=== PATIENT | male | born 1980 | race Caucasian/White ===

== ENCOUNTER 2021-06-04 22:07 | Emergency (ER) | payer OTHER, SELFPAY ==
[2021-06-04 22:15] VITALS: BP 158/105; PULSE 84; RESP 17; TEMP 36.5; O2SAT 100; BMI 27.8
--- NOTE | 2021-06-04 23:31 | ED.EXTPRO ---
HPI - Extremity Problem General Chief complaint: Extremity Problem,Nontraumatic Stated complaint: LEFT FOOT BIG TOE FLUID PAIN Time Seen by Provider: 06/04/21 23:13 Source: patient Mode of arrival: Ambulatory Limitations: no limitations History of Present Illness HPI Narrative: Patient is a 40-year-old male here for evaluation of redness and swelling around his left great toe. He states that it has been there for the past couple days. He has had gout in the past but is been in his right foot. He states the symptoms in his left foot are somewhat similar to his gout but not exactly. He has never had in this foot in the past. He denies any trauma. He has been trying to treat the symptoms at home with natural remedies but does not have any improvement of the symptoms. He denies any fevers. Related Data Previous Rx's Medication Instructions Recorded cephalexin 500 mg capsule 500 mg PO QID 7 Days #28 cap 06/05/21 Allergies Allergy/AdvReac Type Severity Reaction Status Date / Time No Known Drug Allergies Allergy Verified 06/04/21 22:17 Review of Systems Constitutional Constitutional: Denies fever(s) Musculoskeletal Musculoskeletal: Reports system reviewed and no additional complaints, except as documented and Reports as per HPI Integumentary/Breasts Skin/Breast: Reports system reviewed and no additional complaints, except as documented and Reports as per HPI Neurologic Neurologic: Reports system reviewed and no additional complaints, except as documented and Reports as per HPI Hematologic/Lymphatic On Anticoagulants: No Patient History Medical History Gout Social History Smoking Status: Never smoker Smoking Status: Never smoker alcohol intake frequency: a few times a week Substance Use Type: does not use Exam Initial Vital Signs Initial Vital Signs: Vital Signs Temperature 97.7 F 06/04/21 22:15 Pulse Rate 84 06/04/21 22:15 Respiratory Rate 17 06/04/21 22:15 Blood Pressure 158/105 H 06/04/21 22:15 Pulse Oximetry 100 06/04/21 22:15 HENMT Head: normal to inspection and normocephalic Cardio Pulses: dorsalis pedis present on the left Skin Other: Patient does have redness surrounding the area between the MTP joint and the proximal portion of his nail of the left great toe. Is the dorsum of this area. There is some redness that surrounds the base of the 2nd toe. There is swelling around this area that extends to the lateral aspect of his foot. He does not have any tenderness with movement of his left ankle. His left calf is unremarkable. His left knee is unremarkable. Neuro Sensory Exam: no sensory deficits noted Course Orders Ordered: ED Orders 06/04/21 23:51 Basic Metabolic Panel Stat C-Reactive Protein Quant Stat Complete Blood Count AUTO DIFF Stat Erythrocyte Sedimentation Rate Stat Uric Acid Stat Discontinued Medications Cephalexin HCl (Cephalexin 250 Mg Capsule) 500 mg PO NOW ONE Stop: 06/05/21 00:19 Last Admin: 06/05/21 00:30 Dose: 500 mg Documented by: MATY Vital Signs Vital signs: Vital Signs - 8 hr 06/05/21 00:35 Pulse Rate 84 Respiratory Rate 14 Blood Pressure 136/93 H Pulse Oximetry 99 MDM - Extremity (Nontraumatic) Lab Data Result diagrams: 06/04/21 23:51 06/04/21 23:51 Labs: Lab Results 06/04/21 06/04/21 Range/Units 23:51 23:51 WBC 8.1 (4.5-11.0) X10^3/uL RBC 4.19 L (4.5-5.9) X10^6/uL Hgb 13.7 (13.5-17.5) g/dL Hct 39.8 L (41-53) % MCV 95.0 (80-100) fL MCH 32.8 (26-34) PG MCHC 34.5 (30-36) % RDW 13.1 (11.6-14.8) % Plt Count 177 (150-400) X10^3/uL Neut % (Auto) 63.1 (50-75) % Lymph % (Auto) 24.3 L (25-40) % Marshall % (Auto) 10.3 (3-14) % Eos % (Auto) 1.6 L (2-4) % Baso % (Auto) 0.7 (0-2) % Neut # (Auto) 5100 (0804-6861) /uL Lymph # (Auto) 2000 (4309-9825) /uL Marshall # (Auto) 800 (0-900) /uL Eos # (Auto) 100 (0-450) /uL Baso # (Auto) 100 (0-100) /uL ESR 18 H (0-15) MM/HR Sodium 140 (137-145) mmol/L Potassium 4.2 (3.4-5.1) mmol/L Chloride 103 (98-107) mmol/L Carbon Dioxide 32 (22-32) mmol/L BUN 14 (9-20) mg/dL Creatinine 1.01 (0.66-1.25) mg/dL Estimated GFR > 60.0 (>60) mL/min BUN/Creatinine Ratio 13.9 (6-22) Glucose 96 (70-100) mg/dL Uric Acid 6.3 (3.5-8.5) mg/dL Calcium 9.5 (8.4-10.2) mg/dL C-Reactive Protein 4.5 H (<1.0) mg/dL MDM Narrative Medical decision making narrative: Patient's physical exam today could potentially be gout however he does have a normal uric acid. I have low suspicion for fracture. We will hold on any x-rays. I have a higher suspicion that this may be a cellulitis based on his exam today. Plan will be is to start him on oral antibiotics. He was given a dose here in the ER will send home with prescription for the remainder. No indication for admission to the hospital for IV antibiotics today. He is neurovascularly intact. He was given strict return precautions and follow-up instructions. He expressed understanding and agreement. Discharge Plan Departure Patient Disposition: Home Clinical Impression: Cellulitis Instructions: DI for Cellulitis -- Adult Activity Restrictions/Additional Instructions: The feel given your presentation today and also your labs that the inflammation around your left big toe is a infection and less likely gout. I feel that we should start you on antibiotics. A prescription was sent to [facility]. Please start taking it as directed. Contact your primary doctor for a follow-up. Return to the emergency department for any new or worsening symptoms Prescriptions: New cephalexin 500 mg capsule 500 mg PO QID 7 Days Qty: 28 RF: 0
[2021-06-04 23:56] LABS: Add Manual Diff / Slide Review NO; Basophils Absolute Auto 100 /uL (0-100); Basophils Percent Auto 0.7 % (0-2); Eosinophils Absolute Auto 100 /uL (0-450); Eosinophils Percent Auto 1.6 % (2-4); Hematocrit 39.8 % (41-53); Hemoglobin 13.7 g/dL (13.5-17.5); Lymphocytes Absolute Auto 2000 /uL (1100-4500); Lymphocytes Percent Auto 24.3 % (25-40); Mean Corpuscular HGB Conc 34.5 % (30-36); Mean Corpuscular Hemoglobin 32.8 PG (26-34); Monocytes Absolute Auto 800 /uL (0-900); Monocytes Percent Auto 10.3 % (3-14); Neutrophils Absolute Auto 5100 /uL (1500-7000); Neutrophils Percent Auto 63.1 % (50-75); Platelet Count 177 X10^3/uL (150-400); Red Blood Cell Count 4.19 X10^6/uL (4.5-5.9); Red Cell Distribution Width 13.1 % (11.6-14.8); White Blood Cell Count 8.1 X10^3/uL (4.5-11.0)
[2021-06-05 00:09] LABS: BUN Creatinine Ratio 13.9 (6-22); Blood Urea Nitrogen 14 mg/dL (9-20); C-Reactive Protein Quant 4.5 mg/dL (<1.0); Calcium 9.5 mg/dL (8.4-10.2); Carbon Dioxide 32 mmol/L (22-32); Chloride 103 mmol/L (98-107); Estimated Glomerular Filt Rate > 60.0 mL/min (>60); Glucose 96 mg/dL (70-100); HEMOLYSIS < 15 (0-50); Potassium 4.2 mmol/L (3.4-5.1); Sodium 140 mmol/L (137-145); Uric Acid 6.3 mg/dL (3.5-8.5)
[2021-06-05 00:18] LABS: Erythrocyte Sedimentation Rate 18 MM/HR (0-15)
[2021-06-05] MEDS: cephALEXin 250 MG CAPSULE 500 MG PO (00:30)
[2021-06-05 00:35] VITALS: BP 136/93; PULSE 84; RESP 14; O2SAT 99
== END 2021-06-05 00:36 | disposition home or self-care (01) ==
PROVIDERS: Emergency Provider Emergency Medicine
DX: L03.032 Cellulitis of left toe (principal)
CPT/HCPCS: 36415; 80048; 84550; 85025; 85651; 86140; 99283

== ENCOUNTER → 2024-01-16 10:24 | Outpatient (CLI) | payer OTHER, SELFPAY ==
--- NOTE | 2024-01-16 10:26 | DI.RAD.S_ITS ---
PROCEDURE: XR FOOT LT MIN 3V INDICATIONS: pain/swelling redness x 4 days TECHNIQUE: 3 views of the foot were acquired. COMPARISON: None. FINDINGS: Bones: No fractures or dislocations. Chronic appearing fracture deformity at the 1st interphalangeal joint. No suspicious bony lesions. Soft tissues: No tibiotalar joint effusion. Achilles tendon appears normal. IMPRESSION: No acute osseous abnormalities. Chronic appearing fracture deformity at the 1st interphalangeal joint. Dictated by: Maikel Baker M.D. on 01/16/2024 at 14:25 Approved by: Maikel Baker M.D. on 01/16/2024 at 14:27
[2024-01-16 11:53] LABS: Erythrocyte Sedimentation Rate 24 MM/HR (0-15)
[2024-01-16 15:03] LABS: Add Manual Diff / Slide Review NO; Basophils Absolute Auto 100 /uL (0-100); Basophils Percent Auto 0.7 % (0-2); Eosinophils Absolute Auto 200 /uL (0-450); Eosinophils Percent Auto 1.8 % (2-4); Hematocrit 41.4 % (41-53); Hemoglobin 14.4 g/dL (13.5-17.5); Lymphocytes Absolute Auto 1900 /uL (1100-4500); Lymphocytes Percent Auto 20.9 % (25-40); Mean Corpuscular HGB Conc 34.8 % (30-36); Mean Corpuscular Hemoglobin 33.6 PG (26-34); Mean Corpuscular Volume 96.4 fL (80-100); Monocytes Absolute Auto 700 /uL (0-900); Monocytes Percent Auto 7.4 % (3-14); Neutrophils Absolute Auto 6100 /uL (1500-7000); Neutrophils Percent Auto 69.2 % (50-75); Platelet Count 277 X10^3/uL (150-400); Red Blood Cell Count 4.29 X10^6/uL (4.5-5.9); Red Cell Distribution Width 13.3 % (11.6-14.8); White Blood Cell Count 8.9 X10^3/uL (4.5-11.0)
[2024-01-16 15:31] LABS: Alanine Aminotransferase 41 IU/L (<50); Albumin 4.5 g/dL (3.5-5.0); Albumin Globulin Ratio 1.5 (1.0-2.8); Alkaline Phosphatase 77 U/L (38-126); Aspartate Aminotransferase 35 IU/L (17-59); BUN Creatinine Ratio 13.8 (6-22); Bilirubin Total 0.7 mg/dL (0.2-1.3); Blood Urea Nitrogen 12 mg/dL (9-20); Calcium 9.5 mg/dL (8.4-10.2); Carbon Dioxide 27 mmol/L (22-32); Chloride 106 mmol/L (98-107); Cholesterol 223 mg/dL (140-199); Estimated Glomerular Filt Rate > 60 mL/min (>60); Glucose 85 mg/dL (70-100); HDL Cholesterol 55 mg/dL (40-60); HEMOLYSIS < 15 (0-50); LDL Cholesterol Calculated 146 mg/dL (<100); Potassium 4.9 mmol/L (3.4-5.1); Sodium 140 mmol/L (137-145); Total Protein 7.5 g/dL (6.3-8.2); Triglycerides 110 mg/dL (35-150); Uric Acid 7.2 mg/dL (3.5-8.5)
== END ==
PROVIDERS: PCP Family Medicine; Referring Provider Physician Assistant; Visit Provider Physician Assistant
DX: M79.672 Pain in left foot (principal); M10.9 Gout, unspecified; R03.0 Elevated blood-pressure reading, without diagnosis of hypertension
CPT/HCPCS: 36415; 73630; 80053; 80061; 84550; 85025; 85651

== ENCOUNTER → 2024-11-02 12:12 | Outpatient (CLI) | payer OTHER, SELFPAY ==
--- NOTE | 2024-11-02 12:14 | DI.RAD.S_ITS ---
PROCEDURE: XR ANKLE RT MIN 3V INDICATIONS: Foot and ankle pain TECHNIQUE: 3 views of the ankle were acquired. COMPARISON: None. FINDINGS: Bones: No fractures or dislocations. Ankle mortise is normally aligned. No suspicious bony lesions. Soft tissues: No tibiotalar joint effusion. Achilles tendon appears normal. IMPRESSION: No acute bony abnormality or significant effusion. Approved by: Jai Sherman M.D. on 11/02/2024 at 11:31
--- NOTE | 2024-11-02 12:14 | DI.RAD.S_ITS ---
PROCEDURE: XR FOOT RT MIN 3V INDICATIONS: Foot and ankle pain, TECHNIQUE: 3 views of the foot were acquired. COMPARISON: [facility], CR, XR FOOT LT MIN 3V, 01/16/2024, 9:39. FINDINGS: Bones: No fractures or dislocations. No suspicious bony lesions. Soft tissues: No tibiotalar joint effusion. Achilles tendon appears normal. IMPRESSION: No acute bony abnormality. Approved by: Jai Sherman M.D. on 11/02/2024 at 11:32
== END ==
PROVIDERS: PCP Family Medicine; Referring Provider Physician Assistant Surgical; Visit Provider Physician Assistant Surgical
DX: M79.671 Pain in right foot (principal); M25.571 Pain in right ankle and joints of right foot; S99.921A Unspecified injury of right foot, initial encounter; X58.XXXA Exposure to other specified factors, initial encounter
CPT/HCPCS: 73610; 73630

== ENCOUNTER → 2025-02-26 11:19 | Outpatient (CLI) | payer OTHER, SELFPAY ==
--- NOTE | 2025-02-26 11:21 | DI.RAD.S_ITS ---
PROCEDURE: XR RIBS LT MIN 3V W CXR1V INDICATIONS: sternal pain left TECHNIQUE: 3 views of the ribs were acquired, along with a single view chest. COMPARISON: None. FINDINGS: Surgical changes and devices: None. Bones and chest wall: No fractures or dislocations. No suspicious bony lesions. Overlying soft tissues appear unremarkable. Lungs and pleura: No pleural effusions or pneumothorax. Lungs appear clear. Mediastinum: Mediastinal contours appear normal. Heart size is normal. IMPRESSION: No displaced rib fracture or pneumothorax. Dictated by: Ervin Patel M.D. on 02/26/2025 at 11:10 Approved by: Ervin Patel M.D. on 02/26/2025 at 11:11
== END ==
LOC: RAD 11:21
PROVIDERS: PCP Family Medicine; Referring Provider Family Medicine; Visit Provider Family Medicine
DX: M94.0 Chondrocostal junction syndrome [Tietze] (principal)
CPT/HCPCS: 71101